=== PATIENT | female | born 1955 | race Caucasian/White ===

== ENCOUNTER 2021-09-05 18:30 | Emergency (ER) | payer BC ==
[~2021-09-05] VITALS: Ht 167.6 cm; Wt 65.0 kg
[2021-09-05] MEDS ORDERED: BACITRACIN ZINC OINT UDPKT TOP ONE (23:30)
[2021-09-05] MEDS ORDERED: IBUPROFEN 400MG TABLET PO ONE (23:30)
[2021-09-05] MEDS ORDERED: ACETAMINOPHEN 325MG TABLET PO ONE (23:30)
[2021-09-05] MEDS ORDERED: TETANUS, DIPHTHERIA, PERTUSSIS VAC/PF 0.5ML (>10YR OLD) IM ONE (23:30)
[2021-09-06] MEDS ORDERED: TOPUD MT (00:15)
[2021-09-06] MEDS ORDERED: CEPH500T MT (00:15)
[2021-09-06 00:43] VITALS: BP 148/78
== END 2021-09-06 00:43 | disposition home or self-care (01) ==
LOC: ER 18:30
DX: S81.812A Laceration without foreign body, left lower leg, initial encounter (principal); S51.012A Laceration without foreign body of left elbow, initial encounter; I10 Essential (primary) hypertension; Z88.5 Allergy status to narcotic agent; Z88.8 Allergy status to other drugs, medicaments and biological substances; Z79.899 Other long term (current) drug therapy; W01.0XXA Fall on same level from slipping, tripping and stumbling without subsequent striking against object, initial encounter; Y93.89 Activity, other specified; Y92.89 Other specified places as the place of occurrence of the external cause; Y99.8 Other external cause status
CPT/HCPCS: 90471; 90715; 99284